=== PATIENT | male | born 1935 | race Caucasian/White ===

== ENCOUNTER 2016-12-06 17:11 | Emergency (ER) | payer OTHER, MEDICARE ==
[~2016-12-06] VITALS: Ht 165.1 cm; Wt 60.0 kg
[2016-12-06 17:32] VITALS: BP 162/77; PULSE 80; RESP 14; TEMP 97.4; O2SAT 93
--- NOTE | 2016-12-06 17:54 | PD ---
HPI Chief Complaint: Eye Problems/Injury Time Seen by Provider: 17:54 Travel History International Travel<30 days: No Contact w/Intl Traveler<30days: No Traveled to known affect area: No History of Present Illness HPI 81-year-old male referred to us by the [facility] clinic. There is reports of patient having visual changes suggestive of possible TIA or stroke. When I examined the patient in the ambulance call, he states he is having no symptoms whatsoever. Patient is noted to have strabismus but this is long-standing. Patient has no complaints. He has no known drug allergies. [facility] Social History Alcohol Use: No Tobacco Use: No Substance Use: No Allergies-Medications (Allergen,Severity, Reaction): Coded Allergies: No Known Allergies (Unverified , 12/06/16) Review of Systems General / Constitutional: No: Fever Eyes: Positive: Blind Spots (patient states they're currently resolved.), No: Diploplia, Blurred Vision, Photophobia, Drainage, Redness, Foreign Body Sensation, Pain, Tearing, Visual changes, Blindness HENT: No: Headaches Cardiovascular: No: Chest Pain or Discomfort Respiratory: No: Shortness of Breath Gastrointestinal: No: Abdominal Pain Genitourinary: No: Dysuria Musculoskeletal: No: Pain Skin: No Rash Neurologic: No: Weakness, Dizziness, Syncope, Focal Abnormalities, Coordination Problem, Tremor, Ataxia, Headache, Change in Mentation, Slurred Speech, Paresthesia, Incontinence, Seizures, Sensory Disturbance Psychiatric: No: Depression Endocrine: No: Polydipsia Hematologic/Lymphatic: No: Easy Bruising Physical Exam Narrative GENERAL: Patient appears in no acute distress. He is alert and oriented. SKIN: Warm and dry. Normal color. Normal turgor. HEAD: Atraumatic. Normocephalic. EYES: Pupils equal and round. No scleral icterus. No injection or drainage. Patient has bilateral strabismus. Patient denies loss of lateral visual golden by confrontation. ENT: No nasal bleeding or discharge. Mucous membranes pink and moist. Pharynx is clear. NECK: Trachea midline. No JVD. Neck is supple with no appreciated bruits to the carotids. CARDIOVASCULAR: Regular rate and rhythm. No murmurs gallops or rubs appreciated. RESPIRATORY: No accessory muscle use. Clear to auscultation. Breath sounds equal bilaterally. GASTROINTESTINAL: Abdomen soft, non-tender, nondistended. Hepatic and splenic margins not palpable. MUSCULOSKELETAL: Extremities without clubbing, cyanosis, or edema. No obvious deformities. NEUROLOGICAL: Awake and alert. No obvious cranial nerve deficits. Motor grossly within normal limits. Five out of 5 muscle strength in the arms and legs. Normal speech. PSYCHIATRIC: Appropriate mood and affect; insight and judgment normal. Data Data Last Documented VS Vital Signs Date Time Temp Pulse Resp B/P Pulse Ox O2 Delivery O2 Flow Rate FiO2 12/06/16 17:32 97.4 80 14 162/77 93 Room Air Orders Electrocardiogram (12/06/16 18:10) Prothrombin Time / Inr (Pt) (12/06/16 18:10) Act Partial Throm Time (Ptt) (12/06/16 18:10) Complete Blood Count With Diff (12/06/16 18:10) Comprehensive Metabolic Panel (12/06/16 18:10) Creatine Kinase (Cpk) (12/06/16 18:10) Ct Brain W/O Iv Contrast(Rout) (12/06/16 18:10) Ecg Monitoring (12/06/16 18:10) Iv Access Insert/Monitor (12/06/16 18:10) Oximetry (12/06/16 18:10) Labs Laboratory Tests Test 12/06/16 18:23 White Blood Count 9.4 TH/MM3 Red Blood Count 4.13 MIL/MM3 Hemoglobin 13.3 GM/DL Hematocrit 38.6 % Mean Corpuscular Volume 93.5 FL Mean Corpuscular Hemoglobin 32.3 PG Mean Corpuscular Hemoglobin 34.5 % Concent Red Cell Distribution Width 14.5 % Platelet Count 288 TH/MM3 Mean Platelet Volume 9.4 FL Neutrophils (%) (Auto) 47.8 % Lymphocytes (%) (Auto) 40.6 % Monocytes (%) (Auto) 6.3 % Eosinophils (%) (Auto) 4.2 % Basophils (%) (Auto) 1.1 % Neutrophils # (Auto) 4.5 TH/MM3 Lymphocytes # (Auto) 3.8 TH/MM3 Monocytes # (Auto) 0.6 TH/MM3 Eosinophils # (Auto) 0.4 TH/MM3 Basophils # (Auto) 0.1 TH/MM3 CBC Comment DIFF FINAL Differential Comment Prothrombin Time 10.7 SEC Prothromb Time International 1.0 RATIO Ratio Activated Partial 26.4 SEC Thromboplast Time Sodium Level 137 MEQ/L Potassium Level 3.6 MEQ/L Chloride Level 101 MEQ/L Carbon Dioxide Level 27.5 MEQ/L Anion Gap 9 MEQ/L Blood Urea Nitrogen 19 MG/DL Creatinine 1.84 MG/DL Estimat Glomerular Filtration 35 ML/MIN Rate Random Glucose 95 MG/DL Calcium Level 8.8 MG/DL Total Bilirubin 0.6 MG/DL Aspartate Amino Transf 15 U/L (AST/SGOT) Alanine Aminotransferase 22 U/L (ALT/SGPT) Alkaline Phosphatase 68 U/L Total Creatine Kinase 82 U/L Total Protein 7.8 GM/DL Albumin 3.9 GM/DL MDM Medical Decision Making Medical Screen Exam Complete: Yes Emergency Medical Condition: Yes Differential Diagnosis Visual changes. TIAs. Possible stroke. Narrative Course Patient is felt to be medically stable at time of exam. Stroke alert was not called as the patient has no focal findings on my exam. Labs ordered including CBC, CMP, PT PTT and INR. CT of the head is ordered. Head CT shows age-related atrophy. #2 suspected small vessel ischemic changes in the white matter. #3 area of encephalomalacia involving the left occipital lobe in the inferior left cerebellar hemisphere. #4 multiple old lacunar infarcts. #5 2 mm focal area of increased density seen at the anterior left frontal lobe likely related to a prominent vein versus a minimal extra-axial area of hemorrhage. The lack of mass effect to the small size suggest it most likely represents an incidental vein. CBC is unremarkable. CMP shows a BUN of 19 with a creatinine 1.84 otherwise unremarkable. Coags are normal. CT results are reviewed with Dr. Valero, who recommends admitting the patient for observation with neurologic consult recommended. 2034 hrs. call was placed to the hospitalist for admission. Dr. Elias was consulted who saw the patient as well and determine that this was not an acute issue for the patient the patient states he has not had changes in his vision for greater than 1 year. Patient will be discharged home as he is felt to be stable at this time. No changes in medication as recommended. Patient will be given a copy of his CT scan. [facility] in the near future. Diagnosis Primary Impression: Visual changes Additional Impression: Hx-TIA (transient ischemic attack) Admitting Information Admitting Physician Requests: Observation Referrals: Neurologist [facility] [place] Patient Instructions: General Instructions Additional Instructions: Dr. Elias was consulted who saw the patient as well and determine that this was not an acute issue for the patient the patient states he has not had changes in his vision for greater than 1 year. Patient will be discharged home as he is felt to be stable at this time. No changes in medication as recommended. Patient will be given a copy of his CT scan. [facility] and perhaps a neurologist in the near future. Disposition: 01 DISCHARGE HOME Condition: Stable Gucci Loyd Dec 06, 2016 17:54
[2016-12-06 18:46] LABS: AUTOMATED NEUTROPHIL # 4.5 TH/MM3 (1.8-7.7); BASOPHIL # 0.1 TH/MM3 (0-0.2); BASOPHIL % 1.1 % (0.0-2.0); EOSINOPHIL # 0.4 TH/MM3 (0-0.4); EOSINOPHIL % 4.2 % (0.0-4.0); HEMATOCRIT 38.6 % (39.0-51.0); HEMO FLAGS DIFF FINAL; LYMPH % 40.6 % (9.0-44.0); LYMPHOCYTE # 3.8 TH/MM3 (1.0-4.8); MEAN CELL VOLUME 93.5 FL (80.0-100.0); MEAN CORPUSCULAR HEMOGLOBIN 32.3 PG (27.0-34.0); MEAN CORPUSCULAR HGB CONC 34.5 % (32.0-36.0); MONO % 6.3 % (0.0-8.0); NEUT % 47.8 % (16.0-70.0); PLATELET COUNT 288 TH/MM3 (150-450); RED BLOOD COUNT 4.13 MIL/MM3 (4.50-5.90); RED CELL DISTRIBUTION WIDTH 14.5 % (11.6-17.2); WHITE BLOOD COUNT 9.4 TH/MM3 (4.0-11.0)
[2016-12-06 18:59] LABS: ANION GAP 9 MEQ/L (5-15); AST (GOT) 15 U/L (15-37); BICARBONATE 27.5 MEQ/L (21.0-32.0); BLOOD UREA NITROGEN 19 MG/DL (7-18); CHLORIDE 101 MEQ/L (98-107); GLOMERULAR FILTRATION RATE 35 ML/MIN (>89); POTASSIUM 3.6 MEQ/L (3.5-5.1); SODIUM (NA) 137 MEQ/L (136-145)
[2016-12-06 19:01] LABS: APTT (PATIENT) 26.4 SEC (24.3-30.1); PROTHROMBIN TIME - PATIENT 10.7 SEC (9.8-11.6)
[2016-12-06 19:02] LABS: ALKALINE PHOSPHATASE 68 U/L (45-117); ALT (GPT) 22 U/L (12-78); TOTAL BILIRUBIN ADULT 0.6 MG/DL (0.2-1.0)
[2016-12-06 19:04] LABS: CREATINE KINASE 82 U/L (39-308)
--- NOTE | 2016-12-06 19:19 | RADRPT ---
EXAM DATE/TIME: 12/06/2016 18:38 [facility] COMPARISON: No previous studies available for comparison. INDICATIONS : Vision changes. RADIATION DOSE: 40.81 CTDIvol (mGy) MEDICAL HISTORY : Unable to obtain SURGICAL HISTORY : Unable to obtain ENCOUNTER: Initial ACUITY: 1 day PAIN SCALE: 0/10 LOCATION: Bilateral cranial TECHNIQUE: Multiple contiguous axial images were obtained of the head. Using automated exposure control and adjustment of the mA and/or kV according to patient size, radiation dose was kept as low as reasonably achievable to obtain optimal diagnostic quality images. FINDINGS: The ventricles and cortical sulci are widened. There is decreased density seen througho ut the cerebral white matter. Old lacunar infarcts are seen at the left thalamus, right caudate and r ight basal ganglia. There is an area of encephalomalacia involving the left occipital lobe. There is also encephalomalacia seen at the inferior medial left cerebellar hemisphere. There is a 2 mm area of increased density seen at the anterior left frontal lobe related to either a prominent vein or a minimal subdural fluid collection. Significant mass effect is not seen. The fact that it is only se en on two adjacent images suggests it most likely represents a prominent vein. No acute areas of mas s effect or infarction are seen. No potential areas of parenchymal hemorrhage are seen. There does appear to be an old lacunar infarct at the left midbrain and carlos. The bony structures appear grossly intact. There is mucosal disease at the right maxillary sinus. CONCLUSION: 1. Age-related atrophy. 2. Suspected small vessel ischemic change in the white matter. 3. Area of encephalomalacia involving the left occipital lobe and the inferior left cerebellar hemisp here. 4. Multiple old lacunar infarcts. 5. 2 mm focal area of increased density seen at the anterior left frontal lobe likely related to a pr ominent vein versus a minimal extraaxial area of hemorrhage. The lack of mass effect and the small si ze suggest it most likely represents an incidental vein. Alfredo Mercedes MD on December 06, 2016 at 19:04 Board Certified Radiologist. This report was verified electronically.
--- NOTE | 2016-12-06 21:16 | PD ---
Physical Exam Date Seen by Provider: Dec 06, 2016 Time Seen by Provider: 20:00 Narrative Patient presents for blurred vision. Data Data Last Documented VS Vital Signs Date Time Temp Pulse Resp B/P Pulse Ox O2 Delivery O2 Flow Rate FiO2 12/06/16 17:32 97.4 80 14 162/77 93 Room Air Orders Electrocardiogram (12/06/16 18:10) Prothrombin Time / Inr (Pt) (12/06/16 18:10) Act Partial Throm Time (Ptt) (12/06/16 18:10) Complete Blood Count With Diff (12/06/16 18:10) Comprehensive Metabolic Panel (12/06/16 18:10) Creatine Kinase (Cpk) (12/06/16 18:10) Ct Brain W/O Iv Contrast(Rout) (12/06/16 18:10) Ecg Monitoring (12/06/16 18:10) Iv Access Insert/Monitor (12/06/16 18:10) Oximetry (12/06/16 18:10) Labs Laboratory Tests Test 12/06/16 18:23 White Blood Count 9.4 TH/MM3 Red Blood Count 4.13 MIL/MM3 Hemoglobin 13.3 GM/DL Hematocrit 38.6 % Mean Corpuscular Volume 93.5 FL Mean Corpuscular Hemoglobin 32.3 PG Mean Corpuscular Hemoglobin 34.5 % Concent Red Cell Distribution Width 14.5 % Platelet Count 288 TH/MM3 Mean Platelet Volume 9.4 FL Neutrophils (%) (Auto) 47.8 % Lymphocytes (%) (Auto) 40.6 % Monocytes (%) (Auto) 6.3 % Eosinophils (%) (Auto) 4.2 % Basophils (%) (Auto) 1.1 % Neutrophils # (Auto) 4.5 TH/MM3 Lymphocytes # (Auto) 3.8 TH/MM3 Monocytes # (Auto) 0.6 TH/MM3 Eosinophils # (Auto) 0.4 TH/MM3 Basophils # (Auto) 0.1 TH/MM3 CBC Comment DIFF FINAL Differential Comment Prothrombin Time 10.7 SEC Prothromb Time International 1.0 RATIO Ratio Activated Partial 26.4 SEC Thromboplast Time Sodium Level 137 MEQ/L Potassium Level 3.6 MEQ/L Chloride Level 101 MEQ/L Carbon Dioxide Level 27.5 MEQ/L Anion Gap 9 MEQ/L Blood Urea Nitrogen 19 MG/DL Creatinine 1.84 MG/DL Estimat Glomerular Filtration 35 ML/MIN Rate Random Glucose 95 MG/DL Calcium Level 8.8 MG/DL Total Bilirubin 0.6 MG/DL Aspartate Amino Transf 15 U/L (AST/SGOT) Alanine Aminotransferase 22 U/L (ALT/SGPT) Alkaline Phosphatase 68 U/L Total Creatine Kinase 82 U/L Total Protein 7.8 GM/DL Albumin 3.9 GM/DL MDM Supervised Visit with FELICITY: Yes Narrative Course I, Dr. Valero, have reviewed the advance practice practitioner's documentation and am in agreement, met with the patient face to face, made the diagnosis, and the medical decision making was done by me. *My assessment and Findings: The patient is awake and alert and seems to be fully oriented. He is moving all 4 extremities equally. Diagnosis Primary Impression: Visual changes Additional Impression: TIA (transient ischemic attack) Qualified Code: G45.9 - Transient cerebral ischemia, unspecified type Condition: Stable Codi Valero MD Dec 06, 2016 21:16
[2016-12-06 22:11] VITALS: BP 129/64; PULSE 103; RESP 18; TEMP 98; O2SAT 92
[2016-12-06 23:06] VITALS: BP 124/60
== END 2016-12-06 23:53 | disposition home or self-care (01) ==
LOC: NEDAMB 17:11
DX: H53.9 Unspecified visual disturbance (principal); G45.9 Transient cerebral ischemic attack, unspecified; Z86.73 Personal history of transient ischemic attack (TIA), and cerebral infarction without residual deficits
CPT/HCPCS: 70450; 80053; 82550; 85025; 85610; 85730